=== PATIENT | male | born 1990 | race Caucasian/White ===

== ENCOUNTER 2018-10-11 19:37 | Emergency (ER) | payer MEDICAID ==
[~2018-10-11] VITALS: Ht 167.6 cm; Wt 68.0 kg
--- NOTE | 2018-10-11 19:55 | NUR ---
DR. GRIMALDO IS AT THE BEDSIDE SPEAKING TO THE PT.
[2018-10-11] MEDS ORDERED: ONDANSETRON 4 MG TAB.RAPDIS SL ONE (20:00)
[2018-10-11] MEDS ORDERED: PHENYTOIN EXTENDED RELEASE 100 MG CAPSULE PO ONE ×3 (20:00→20:30)
[2018-10-11] MEDS ORDERED: ONDANSETRON 4 MG TAB.RAPDIS ONE (20:04)
--- NOTE | 2018-10-11 20:12 | NUR ---
PT REC'D MEDICATION ORDERED. Patient discharged to home in stable condition. Written and verbal after care instructions given. Patient verbalizes understanding of instruction AND RX. PT'S MOTHER IS DRIVING PT HOME. VSS. NAD NOTED. PT AMBULATED OUT WITH A STEADY GAIT.
[2018-10-11 20:15] VITALS: BP 138/83
== END 2018-10-11 20:16 | disposition home or self-care (01) ==
LOC: ER 19:42
DX: G40.909 Epilepsy, unspecified, not intractable, without status epilepticus (principal); Z90.89 Acquired absence of other organs; Z60.2 Problems related to living alone
CPT/HCPCS: 99283; A4606; Z7610; Q0162

== ENCOUNTER 2018-11-02 18:33 | Emergency (ER) | payer MEDICAID ==
[~2018-11-02] VITALS: Ht 167.6 cm; Wt 68.9 kg
--- NOTE | 2018-11-02 18:58 | NUR ---
PT BIBMOM FOR ATTEMPTED SUICIDE, PER REPORT PT TOOK DILANTIN AND HYDROCODONE; PT ENDROSES S/I, WANTS TO KILL HIMSELF; RESPIRATIONS EVEN AND UNLABORED, NO SOB, NAD NOTED, PLACED PT ON MONITOR, SUICIDE PRECAUTIONS INTIATED, TO ER BED 7, PENDING ER PROVIDER NAHUN
[2018-11-02 19:10] LABS: BASOPHILS # (AUTO) 0.1 /CMM (0.0-0.2); BASOPHILS % (AUTO) 0.8 % (0.0-2.0); EOSINOPHILS % (AUTO) 1.4 % (0.0-6.0); HEMATOCRIT 44 % (39-51); LYMPHOCYTES # (AUTO) 0.9 /CMM (0.8-4.8); LYMPHOCYTES % (AUTO) 9.8 % (20.0-44.0); MEAN CORPUSCULAR HGB CONC 34 g/dl (31.0-36.0); MEAN CORPUSCULAR VOLUME 83 fL (80-96); MONOCYTES # (AUTO) 0.6 /CMM (0.1-1.30); MONOCYTES % (AUTO) 7.3 % (2.0-12.0); NEUTROPHILS % (AUTO) 80.7 % (43.0-81.0); PLATELET COUNT (AUTO) 215 /CMM (150-450); RED BLOOD CELL COUNT(AUTO) 5.29 MIL/uL (4.5-6.0); WHITE BLOOD COUNT (AUTO) 8.7 K/uL (4.3-11.0)
[2018-11-02 19:28] LABS: CALCIUM, SERUM 8.5 mg/dL (8.5-10.1); CARBON DIOXIDE 36 mmol/L (21-32); CHLORIDE 100 mmol/L (98-107); CREATININE 1.1 mg/dL (0.6-1.3); GLUCOSE 132 mg/dL (74-106); POTASSIUM 4.3 mmol/L (3.5-5.1); SODIUM SERUM 139 mmol/L (136-145); UREA NITROGEN, BLOOD 10 mg/dL (7-18)
[2018-11-02 19:32] LABS: ACETAMINOPHEN 3 ug/ml (10-30); ALANINE AMINOTRANSFERASE 43 U/L (12-78); ALCOHOL, BLOOD < 3 mg/dL (0-0); ALKALINE PHOSPHATASE 73 U/L (46-116); ASPARTATE AMINOTRANSFERASE 17 U/L (15-37); BILIRUBIN,TOTAL 0.2 mg/dL (0.2-1.0); TOTAL PROTEIN, SERUM 7.6 g/dL (6.4-8.2)
[2018-11-02 19:34] LABS: SALICYLATE 1.4 mg/dL (2.8-20.0)
[2018-11-02 19:52] LABS: APPEARANCE,URINE Clear (CLEAR); BILIRUBIN,URINE Negative (NEGATIVE); BLOOD, URINE Negative Ery/uL (NEGATIVE); COLOR,URINE Yellow (YELLOW); KETONES,URINE Negative (NEGATIVE); LEUKOCYTE ESTERASE ,URINE Negative (NEGATIVE); NITRITE, URINE Negative (NEGATIVE); PH,URINE 6.5 (5.0-8.0); PROTEIN,URINE Negative (NEGATIVE); UGLUCOSE Negative (NEGATIVE); UROBILINOGEN,URINE 0.2 EU/dL (0.2)
--- NOTE | 2018-11-02 20:00 | NUR ---
Patient is resting comfortably in bed with eyes closed. Easily aroused. VSS
--- NOTE | 2018-11-02 21:00 | NUR ---
Called TANIA Lockhart and was told she would come straight here after she is done evaluating a patient at [facility]
--- NOTE | 2018-11-02 21:16 | NUR ---
CALLED TANIA CADE FOR PSYCH EVAL. LEFT MESSAGE
--- NOTE | 2018-11-03 00:04 | NUR ---
PER ALYSSIA MARIN, PT IS NOT HOLDABLE AND GOOD FOR D/C HOME WITH REFERRALS, PT DENIES SI/HI AT THIS TIME; AMB WITH STEADY GAIT; PT WITH MOTHER AT THIS TIME
--- NOTE | 2018-11-03 00:16 | NUR ---
PT AND MOTHER LEFT PRIOR TO RECEIVING DISCHARGE PAPERWORK AFTER COMPLETING EVALUATION WITH ALYSSIA, WHILE WAS PREPARING PAPERWORK.
[2018-11-03 00:18] VITALS: BP 131/70
== END 2018-11-03 00:19 | disposition home or self-care (01) ==
LOC: ER 18:36
DX: T42.0X2A Poisoning by hydantoin derivatives, intentional self-harm, initial encounter (principal); T39.1X2A Poisoning by 4-Aminophenol derivatives, intentional self-harm, initial encounter; R45.851 Suicidal ideations; F19.10 Other psychoactive substance abuse, uncomplicated; F32.9 Major depressive disorder, single episode, unspecified; G40.909 Epilepsy, unspecified, not intractable, without status epilepticus; R94.31 Abnormal electrocardiogram [ECG] [EKG]; Z90.89 Acquired absence of other organs; Z60.2 Problems related to living alone; Y92.89 Other specified places as the place of occurrence of the external cause
CPT/HCPCS: 36415; 80048; 80076; 80185; 80305; 80329; 81001; 85025; 93005; 99284; A4606; G0480 ×2; Z7610; 81000-TC

== ENCOUNTER 2019-08-04 10:51 | Emergency (ER) | payer MEDICAID ==
[~2019-08-04] VITALS: Ht 167.6 cm; Wt 71.2 kg
[2019-08-04] MEDS ORDERED: LORAZEPAM INJ 2 MG/ML VIAL IVP ONE (11:00)
[2019-08-04] MEDS ORDERED: LORAZEPAM INJ 2 MG/ML VIAL ONE ×2 (11:11→11:22)
[2019-08-04 11:16] LABS: BASOPHILS # (AUTO) 0.1 /CMM (0.0-0.2); BASOPHILS % (AUTO) 1.2 % (0.0-2.0); EOSINOPHILS % (AUTO) 0.6 % (0.0-6.0); HEMATOCRIT 47 % (39-51); HEMOGLOBIN 16.2 g/dL (13.5-17.5); LYMPHOCYTES % (AUTO) 11.8 % (20.0-44.0); MEAN CORPUSCULAR HGB CONC 34 g/dl (31.0-36.0); MEAN CORPUSCULAR VOLUME 85 fL (80-96); MONOCYTES # (AUTO) 0.5 /CMM (0.1-1.30); MONOCYTES % (AUTO) 5.7 % (2.0-12.0); NEUTROPHILS # (AUTO) 6.6 /CMM (1.8-8.9); NEUTROPHILS % (AUTO) 80.7 % (43.0-81.0); PLATELET COUNT (AUTO) 200 /CMM (150-450); RED BLOOD CELL COUNT(AUTO) 5.57 MIL/uL (4.5-6.0); WHITE BLOOD COUNT (AUTO) 8.1 K/uL (4.3-11.0)
[2019-08-04 11:33] LABS: CALCIUM, SERUM 9.1 mg/dL (8.5-10.1); CREATININE 1.2 mg/dL (0.6-1.3); POTASSIUM 4.2 mmol/L (3.5-5.1)
[2019-08-04 11:41] LABS: ALBUMIN 4.2 g/dL (3.4-5.0); BILIRUBIN,DIRECT 0.1 mg/dL (0.0-0.2); BILIRUBIN,TOTAL 0.2 mg/dL (0.2-1.0); TOTAL PROTEIN, SERUM 7.7 g/dL (6.4-8.2)
[2019-08-04 11:55] LABS: PHENYTOIN (DILANTIN) 8.1 ug/ml (10.0-20.0)
[2019-08-04] MEDS ORDERED: PHENYTOIN SODIUM IV ONE (12:30)
[2019-08-04] MEDS ORDERED: NS 0.9% IV ONE (12:30)
--- NOTE | 2019-08-04 13:00 | NUR ---
Patientawake alert no Sz activity his mom @ bedside made aware paln of care
--- NOTE | 2019-08-04 13:42 | NUR ---
dc Patient discharged to home in stable condition. Written and verbal after care instructions given. Patient verbalizes understanding of instruction.
[2019-08-04 13:43] VITALS: BP 120/89
== END 2019-08-04 13:42 | disposition home or self-care (01) ==
LOC: ER 10:52
DX: S00.83XA Contusion of other part of head, initial encounter (principal); R56.9 Unspecified convulsions; F10.10 Alcohol abuse, uncomplicated; Y90.9 Presence of alcohol in blood, level not specified; Z60.2 Problems related to living alone; Z90.89 Acquired absence of other organs; X58.XXXA Exposure to other specified factors, initial encounter; Y93.89 Activity, other specified; Y92.89 Other specified places as the place of occurrence of the external cause; Y99.8 Other external cause status
CPT/HCPCS: 36415; 70450; 80048; 80076; 80185; 85025; 85730; 96365; 96375; 99284; J1165; J2060 ×2; J7030

== ENCOUNTER 2019-11-21 15:33 | Emergency (ER) | payer MEDICAID ==
[~2019-11-21] VITALS: Ht 172.7 cm; Wt 65.8 kg
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
[2019-11-21 15:57] LABS: BASOPHILS # (AUTO) 0.1 /CMM (0.0-0.2); BASOPHILS % (AUTO) 1.2 % (0.0-2.0); EOSINOPHILS % (AUTO) 0.2 % (0.0-6.0); HEMATOCRIT 44 % (39-51); HEMOGLOBIN 14.9 g/dL (13.5-17.5); LYMPHOCYTES # (AUTO) 0.7 /CMM (0.8-4.8); LYMPHOCYTES % (AUTO) 8.7 % (20.0-44.0); MEAN CORPUSCULAR HGB CONC 34 g/dl (31.0-36.0); MEAN CORPUSCULAR VOLUME 84 fL (80-96); MONOCYTES # (AUTO) 0.4 /CMM (0.1-1.30); MONOCYTES % (AUTO) 4.6 % (2.0-12.0); NEUTROPHILS # (AUTO) 7.2 /CMM (1.8-8.9); NEUTROPHILS % (AUTO) 85.3 % (43.0-81.0); PLATELET COUNT (AUTO) 214 /CMM (150-450); RED BLOOD CELL COUNT(AUTO) 5.24 MIL/uL (4.5-6.0); WHITE BLOOD COUNT (AUTO) 8.5 K/uL (4.3-11.0)
[2019-11-21] MEDS ORDERED: PHEN300C6 PO (15:57)
[2019-11-21] MEDS ORDERED: LORAZEPAM INJ 2 MG/ML VIAL IVP ONE (16:00)
[2019-11-21] MEDS ORDERED: LORAZEPAM INJ 2 MG/ML VIAL ONE (16:07)
[2019-11-21 16:17] LABS: CREATININE 1.3 mg/dL (0.6-1.3); PHENYTOIN (DILANTIN) 5.6 ug/ml (10.0-20.0); POTASSIUM 4.1 mmol/L (3.5-5.1)
[2019-11-21 16:24] LABS: ALBUMIN 4.2 g/dL (3.4-5.0); BILIRUBIN,DIRECT 0.1 mg/dL (0.0-0.2); BILIRUBIN,TOTAL 0.2 mg/dL (0.2-1.0); TOTAL PROTEIN, SERUM 7.4 g/dL (6.4-8.2)
[2019-11-21] MEDS ORDERED: phenytoin SODIUM IV 500 MG in IV NS 0.9% 50 ML IV ONE (17:00)
[2019-11-21 18:04] VITALS: BP 133/54
--- NOTE | 2019-11-21 18:05 | NUR ---
PATIENT A/OX4, BREATHING EVEN AND UNLABORED, SAMRA INTACT, NO DISTRESS NOTED, AMBULATORY WITH STEADY GAIT, MOM AT BEDSIDE. IV removed. Catheter intact and site benign. Pressure and 4x4 applied to site. No bleeding noted. Patient discharged to home in stable condition. Written and verbal after care instructions given. Patient verbalizes understanding of instruction.
== END 2019-11-21 18:06 | disposition home or self-care (01) ==
LOC: ER 15:34
DX: S01.01XA Laceration without foreign body of scalp, initial encounter (principal); S09.8XXA Other specified injuries of head, initial encounter; G40.909 Epilepsy, unspecified, not intractable, without status epilepticus; F10.10 Alcohol abuse, uncomplicated; Y90.9 Presence of alcohol in blood, level not specified; Z90.89 Acquired absence of other organs; Z60.2 Problems related to living alone; Z79.899 Other long term (current) drug therapy; X58.XXXA Exposure to other specified factors, initial encounter; Y93.89 Activity, other specified; Y92.89 Other specified places as the place of occurrence of the external cause; Y99.8 Other external cause status
CPT/HCPCS: 12002; 36415; 70450; 80048; 80076; 80185; 85025; 96365; 96375; 99284; A4216; A6403; J1165; J2060

== ENCOUNTER 2019-11-29 19:26 | Emergency (ER) | payer MEDICAID ==
[~2019-11-29] VITALS: Ht 167.6 cm; Wt 65.8 kg
[~2019-11-29 19:26] MED LIST: PHEN300C6 PO
[2019-11-29 20:31] VITALS: BP 121/69
--- NOTE | 2019-11-29 20:31 | NUR ---
Patient discharged to home in stable condition. Written and verbal after care instructions given. Patient verbalizes understanding of instruction. ambulatory with a steady gait noted.
== END 2019-11-29 20:32 | disposition home or self-care (01) ==
LOC: ER 19:31
DX: S01.01XD Laceration without foreign body of scalp, subsequent encounter (principal); R56.9 Unspecified convulsions; F10.10 Alcohol abuse, uncomplicated; Y90.9 Presence of alcohol in blood, level not specified; Z90.89 Acquired absence of other organs; Z60.2 Problems related to living alone; Z79.899 Other long term (current) drug therapy; X58.XXXD Exposure to other specified factors, subsequent encounter

== ENCOUNTER 2019-12-06 08:37 | Emergency (ER) | payer MEDICAID ==
[~2019-12-06] VITALS: Ht 167.6 cm; Wt 65.3 kg
[2019-12-06 08:45] VITALS: BP 130/76
[2019-12-06] MEDS ORDERED: PHENYTOIN EXTENDED RELEASE 100 MG CAPSULE PO ONE ×2 (09:30)
== END 2019-12-06 10:25 | disposition home or self-care (01) ==
LOC: ER 08:38
DX: G40.909 Epilepsy, unspecified, not intractable, without status epilepticus (principal); Z60.2 Problems related to living alone; Z79.899 Other long term (current) drug therapy